=== PATIENT | male | born 1960 | race African-American/Black ===

== ENCOUNTER 2021-06-30 14:50 | Emergency (ER) | payer OTHER ==
[2021-06-30 15:20] VITALS: BMI 27.9
[2021-06-30 15:51] LABS: BASO % 3.7 % (0-2.0); EOS % 0.4 % (0-4.5); HEMATOCRIT 41.5 % (35.4-49); HEMOGLOBIN 14.2 GM/dl (11.7-16.9); MCH 29.5 pg (25.7-33.7); MCHC 34.2 g/dl (32.0-35.9); MEAN CELL VOLUME 86.4 fl (80-96); MEAN PLT VOLUME 8.8 fl (7.5-11.1); MONO % 7.8 % (3.8-10.2); NEUT % 62.1 % (42.8-82.8); PLATELET COUNT 217 10^3/uL (134-434); RDW 13.2 % (11.9-15.9); WHITE BLOOD COUNT 6.6 K/mm3 (4.0-10.8)
[2021-06-30 16:08] LABS: ALBUMIN 4.1 g/dl (3.4-5.0); BILIRUBIN,TOTAL 0.9 mg/dl (0.2-1); CALCIUM 9.6 mg/dl (8.5-10); CREATININE 1.6 mg/dl (0.55-1.3); TOT PROT 7.5 g/dl (6.4-8.2)
[2021-06-30] MEDS ORDERED: ACETAMINOPHEN 1000 MG/100 ML VIAL IVPB ONE (16:10)
[2021-06-30] MEDS ORDERED: ACETAMINOPHEN INJECTION 100 ML IVPB ONE (16:11)
[2021-06-30] MEDS ORDERED: SODIUM CHLORIDE 0.9% 500 ML INFUS.BAG IV ONE (17:44)
[2021-06-30 18:51] VITALS: BP 131/86; PULSE 79; TEMP 100.2
== END 2021-06-30 18:50 | disposition home or self-care (01) ==
LOC: FER 14:50
PROC: 3E0333Z Introduction of Anti-inflammatory into Peripheral Vein, Percutaneous Approach (ICD-10-PCS; principal; 2021-06-30)
DX: N20.1 Calculus of ureter (principal); N20.0 Calculus of kidney; N13.30 Unspecified hydronephrosis
CPT/HCPCS: 36415; 74177-TC; 80053; 81003; 81015; 83690; 85025; 87086; 99285-25; J0131; Q9967